=== PATIENT | male | born 1965 | race American Indian/Alaskan Native ===

== ENCOUNTER 2018-03-11 09:48 | Observation (INO) | payer OTHER ==
[2018-03-11] MEDS ORDERED: SODIUM CHLORIDE 0.9% 1,000 ML IV STA (10:36)
[2018-03-11] MEDS ORDERED: KETOROLAC 30 MG/ML 1 ML VIAL IVP STA (10:36)
--- NOTE | 2018-03-11 10:40 | ED ---
General Adult HPI - General Chief complaint: Abdominal Pain Stated complaint: abdominal pain Source: patient Mode of arrival: ambulatory Limitations: no limitations - History of Present Illness Initial comments: Dictation was produced using [employer] dictation software. please excuse any grammatical, word or spelling errors. Chief Complaint: 52-year-old male presents with 1 day history of periumbilical abdominal pain. History of Present Illness: 52-year-old male presents with periumbilical abdominal pain. Patient reports that over the last 3 days she's been feeling bloated. Patient ate some parolees made by his family member last night. This morning he awoke at approximate 6 AM feeling nauseated. He went to work when at 7:30 AM he began experiencing severe epigastric abdominal pain. She states this pain was so bad that it made him fall to his knees. He states he was having severe difficulty with walking secondary to the pain. She had one episode of clear emesis. Patient has any medical problems. Patient states he did not eat prior to his symptom onset. Denies any changes in bowel patterns. Patient denies any medical history. He did have a history of cardiac surgery performed several years ago. The ROS documented in this emergency department record has been reviewed and confirmed by me. Those systems with pertinent positive or negative responses have been documented in the HPI. All other systems are other negative and/or noncontributory. - Related Data Home Medications Medication Instructions Recorded Confirmed Bismuth Subsalicylate 262 mg PO ONCE 03/11/18 03/11/18 [Pepto-Bismol] Allergies Allergy/AdvReac Type Severity Reaction Status Date / Time No Known Allergies Allergy Verified 03/11/18 10:01 Review of Systems ROS Statement: Those systems with pertinent positive or pertinent negative responses have been documented in the HPI. ROS Other: All systems not noted in ROS Statement are negative. Past Medical History Past Medical History: No Reported History History of Any Multi-Drug Resistant Organisms: None Reported Past Surgical History: Hernia Repair Past Psychological History: No Psychological Hx Reported Smoking Status: Never smoker Past Alcohol Use History: Occasional Past Drug Use History: None Reported General Exam - General Exam Comments Initial Comments: PHYSICAL EXAM: General Impression: Alert and oriented x3, not in acute distress HEENT: Normocephalic atraumatic, extra-ocular movements intact, pupils equal and reactive to light bilaterally, mucous membranes moist. Cardiovascular: Heart regular rate and rhythm, S1&S2 audible, no murmurs, rubs or gallops Chest: Lungs clear to auscultation bilaterally, no rhonchi, no wheeze, no rales Abdomen: Epigastric and periumbilical tenderness to palpation, positive bowel sounds, no tympany Musculoskeletal: Pulses present and equal in all extremities, no peripheral edema Motor: Power 5/5 bilaterally, no focal deficits noted Neurological: CN II-XII grossly intact, no focal motor or sensory deficits noted Skin: Intact with no visualized rashes Psych: Normal affect and mood Limitations: no limitations Course Vital Signs 03/11/18 03/11/18 09:49 10:03 Temperature 98.1 F 96.9 F L Pulse Rate 63 66 Respiratory 18 18 Rate Blood Pressure 145/94 148/96 O2 Sat by Pulse 98 100 Oximetry Medical Decision Making - Medical Decision Making ED course: 52-year-old male presents with acute onset epigastric abdominal pain. Vital signs upon arrival are within acceptable limits. Laboratory evaluation unremarkable. CT abdomen and pelvis with IV contrast demonstrates acute appendicitis. Discussed patient case with general surgeon on-call Dr. Morin who is willing to accept patient for admission. Patient is to be nothing by mouth. Patient started on ceftriaxone and Flagyl. Possible OR today. EKG interpretation: Ventricular rate 76, normal sinus rhythm,. Interval 192, QRS 100, QTC 454. No RI prolongation, no QTC prolongation, no ST or T-wave changes noted. Overall, this EKG is unremarkable - Lab Data Result diagrams: 03/11/18 10:55 03/11/18 10:55 Lab Results 03/11/18 03/11/18 03/11/18 Range/Units 10:55 10:55 10:55 WBC 10.1 (3.8-10.6) k/uL RBC 5.17 (4.30-5.90) m/uL Hgb 15.4 (13.0-17.5) gm/dL Hct 45.2 (39.0-53.0) % MCV 87.5 (80.0-100.0) fL MCH 29.7 (25.0-35.0) pg MCHC 34.0 (31.0-37.0) g/dL RDW 12.9 (11.5-15.5) % Plt Count 322 (150-450) k/uL Neutrophils % 86 % Lymphocytes % 7 % Monocytes % 4 % Eosinophils % 2 % Basophils % 0 % Neutrophils # 8.7 H (1.3-7.7) k/uL Lymphocytes # 0.7 L (1.0-4.8) k/uL Monocytes # 0.4 (0-1.0) k/uL Eosinophils # 0.2 (0-0.7) k/uL Basophils # 0.0 (0-0.2) k/uL PT 10.9 (9.0-12.0) sec INR 1.0 (<1.2) Sodium 141 (137-145) mmol/L Potassium 4.1 (3.5-5.1) mmol/L Chloride 106 (98-107) mmol/L Carbon Dioxide 25 (22-30) mmol/L Anion Gap 10 mmol/L BUN 18 (9-20) mg/dL Creatinine 0.64 L (0.66-1.25) mg/dL Est GFR (CKD-EPI)AfAm >90 (>60 ml/min/1.73 sqM) Est GFR (CKD-EPI)NonAf >90 (>60 ml/min/1.73 sqM) Glucose 110 H (74-99) mg/dL Calcium 9.4 (8.4-10.2) mg/dL Total Bilirubin 0.9 (0.2-1.3) mg/dL AST 30 (17-59) U/L ALT 43 (21-72) U/L Alkaline Phosphatase 87 (38-126) U/L Troponin I (0.000-0.034) ng/mL Total Protein 7.6 (6.3-8.2) g/dL Albumin 4.3 (3.5-5.0) g/dL Lipase 31 (23-300) U/L //18 Range/Units 10:55 WBC (3.8-10.6) k/uL RBC (4.30-5.90) m/uL Hgb (13.0-17.5) gm/dL Hct (39.0-53.0) % MCV (80.0-100.0) fL MCH (25.0-35.0) pg MCHC (31.0-37.0) g/dL RDW (11.5-15.5) % Plt Count (150-450) k/uL Neutrophils % % Lymphocytes % % Monocytes % % Eosinophils % % Basophils % % Neutrophils # (1.3-7.7) k/uL Lymphocytes # (1.0-4.8) k/uL Monocytes # (0-1.0) k/uL Eosinophils # (0-0.7) k/uL Basophils # (0-0.2) k/uL PT (9.0-12.0) sec INR (<1.2) Sodium (137-145) mmol/L Potassium (3.5-5.1) mmol/L Chloride (98-107) mmol/L Carbon Dioxide (22-30) mmol/L Anion Gap mmol/L BUN (9-20) mg/dL Creatinine (0.66-1.25) mg/dL Est GFR (CKD-EPI)AfAm (>60 ml/min/1.73 sqM) Est GFR (CKD-EPI)NonAf (>60 ml/min/1.73 sqM) Glucose (74-99) mg/dL Calcium (8.4-10.2) mg/dL Total Bilirubin (0.2-1.3) mg/dL AST (17-59) U/L ALT (21-72) U/L Alkaline Phosphatase (38-126) U/L Troponin I <0.012 (0.000-0.034) ng/mL Total Protein (6.3-8.2) g/dL Albumin (3.5-5.0) g/dL Lipase (23-300) U/L Disposition Clinical Impression: Acute appendicitis Disposition: ADMITTED IP TO THIS HOSP Condition: Fair Referrals: Walt Howell MD [Primary Care Provider] - 1-2 days Decision Time: 12:23
[2018-03-11 11:11] LABS: Basophils % (A) 0 %; Eosinophils # (A) 0.2 k/uL (0-0.7); Eosinophils % (A) 2 %; HCT 45.2 % (39.0-53.0); HGB 15.4 gm/dL (13.0-17.5); Lymphocytes # (A) 0.7 k/uL (1.0-4.8); Lymphocytes % (A) 7 %; MCH 29.7 pg (25.0-35.0); MCV 87.5 fL (80.0-100.0); Mean Platelet Volume 6.3; Monocytes # (A) 0.4 k/uL (0-1.0); Monocytes % (A) 4 %; Neutrophils # (A) 8.7 k/uL (1.3-7.7); Neutrophils % (A) 86 %; Platelet Count 322 k/uL (150-450); RBC 5.17 m/uL (4.30-5.90); RDW 12.9 % (11.5-15.5); WBC 10.1 k/uL (3.8-10.6)
[2018-03-11 11:13] LABS: Prothrombin Time 10.9 sec (9.0-12.0)
[2018-03-11 11:17] LABS: ALT 43 U/L (21-72); AST 30 U/L (17-59); Albumin 4.3 g/dL (3.5-5.0); Alkaline Phosphatase 87 U/L (38-126); Anion Gap 10 mmol/L; Blood Urea Nitrogen 18 mg/dL (9-20); Calcium 9.4 mg/dL (8.4-10.2); Carbon Dioxide 25 mmol/L (22-30); Chloride 106 mmol/L (98-107); Glucose 110 mg/dL (74-99); Lipase 31 U/L (23-300); Potassium 4.1 mmol/L (3.5-5.1); Sodium 141 mmol/L (137-145); Total Bilirubin 0.9 mg/dL (0.2-1.3); Total Protein 7.6 g/dL (6.3-8.2)
--- NOTE | 2018-03-11 11:48 | CT ---
EXAMINATION TYPE: CT abdomen pelvis w con DATE OF EXAM: 03/11/2018 COMPARISON: Prior CT 06/16/2013 HISTORY: Abdominal pain CT DLP: 1358.7 mGycm Automated exposure control for dose reduction was used. TECHNIQUE: Helical acquisition of images from the lung bases through the pelvis have been completed. CONTRAST: Performed without Oral Contrast and with IV Contrast, patient injected with 100 ml mL of Isovue 300. FINDINGS: Small anterior abdominal wall hernia is present containing fat in the subxiphoid, supraumbi lical location as on prior. LUNG BASES: Dependent atelectatic changes are present at the posterior lung bases. AORTA: No significant abnormality is appreciated. LIVER/GB: Liver shows low attenuation likely due to hepatic steatosis. Gallbladder unremarkable. PANCREAS: No significant abnormality is seen. SPLEEN: No significant abnormality is seen. ADRENALS: No significant abnormality is seen. KIDNEYS: Stable cortical cysts associated with the left kidney. REPRODUCTIVE ORGANS: No significant abnormality is seen BOWEL: Diverticular changes associated with the colon the descending and sigmoid regions, no obstruc tion. The appendix is dilated fluid-filled, some periappendiceal inflammatory changes present. FREE AIR: No Free Air visible. ASCITES: None visible. PELVIC ADENOPATHY: None visualized. RETROPERITONEAL ADENOPATHY: No Retroperitoneal Adenopathy visible. URINARY BLADDER: No significant abnormality is seen. OSSEOUS STRUCTURES: Degenerative disc changes, facet arthropathy noted in the lumbar spine.. IMPRESSION: FINDINGS COMPATIBLE WITH APPENDICITIS. ADDITIONAL FINDINGS ABOVE.
[2018-03-11] MEDS ORDERED: metroNIDAZOLE-NS PMX 500 MG in SALINE 1 100ML.BAG IVPB STA (12:13)
[2018-03-11] MEDS ORDERED: NALOXONE 0.4 MG/ML 1 ML VIAL IV PRN (12:21)
[2018-03-11 12:29] LABS: Appearance,Urine Clear (Clear); Bilirubin,Urine Negative (Negative); Blood,Urine Small (Negative); Color,Urine Light Yellow; Glucose,Urine (UA) Negative (Negative); Ketones,Urine Negative (Negative); Leukocyte Esterase,Urine Negative (Negative); Mucus,Urine Rare /hpf; Nitrite,Urine Negative (Negative); Protein,Urine Negative (Negative); RBC,Urine 5 /hpf (0-5); Specific Gravity,Urine 1.027 (1.001-1.035); Urobilinogen,Urine <2.0 mg/dL (<2.0); WBC,Urine <1 /hpf (0-5)
[2018-03-11] MEDS ORDERED: HYDROcodone/APAP 5-325MG 1 EACH TAB PO PRN (12:54)
[2018-03-11] MEDS ORDERED: ONDANSETRON 4 MG/2 ML VIAL IVP PRN (12:54)
[2018-03-11] MEDS ORDERED: ACETAMINOPHEN IV (For NPO) 1,000 MG in EMPTY BAG 1 BAG IVPB ONE (12:54)
--- NOTE | 2018-03-11 12:54 | P.GSHP ---
History of Present Illness H&P Date: 03/11/18 CHIEF COMPLAINT: Right lower quadrant abdominal pain with appendicitis, 6 hrs ago HISTORY OF PRESENT ILLNESS: The patient is a previously healthy 52-year-old male who presents with less than half day history of periumbilical pain that started at work this morning. No reports of prior abdominal pain. He states the intensity of the pain was moderate to severe prompting nausea and vomiting. He presented with CT abdomen and pelvis consistent with dilated appendix suspicious for appendicitis hence general surgery admission. PAST MEDICAL HISTORY: See list. PAST SURGICAL HISTORY: See list. CURRENT MEDICATIONS: See list. ALLERGIES: See list. SOCIAL HISTORY: No illicit drug use FAMILY HISTORY: Denies Crohns disease and ulcerative colitis. REVIEW OF ORGAN SYSTEMS: CONSTITUTIONAL: Denies any fever or chills. Denies recent weight loss. HEENT: Denies any trouble with hearing or nosebleeds. Wears glasses. No difficulty swallowing. LYMPHATIC: The patient denies any lumps and bumps around the neck. ENDOCRINE: Denies any thyroid disorders. Denies any blood sugar glucose intolerance. RESPIRATORY: Denies shortness of breath including chronic cough. CARDIOVASCULAR: Denies history of chest pain with exertion. GASTROINTESTINAL: Denies regurgitation of bile at night as well as intermittent nausea. No blood in stools. GENITOURINARY: Denies any blood in urine or increased urinary frequency. MUSCULOSKELETAL: Denies current joint arthritis. NEUROLOGIC: Denies any numbness or tingling along the distal extremities. No seizure disorders or headaches. PSYCHIATRIC: Denies any depression or suicidal ideation. HEMATOLOGIC: Denies any abnormal bleeding or bruising. PHYSICAL EXAMINATION: GENERAL: Well developed and in no acute distress. Pleasant. HEENT: No sclera icterus. Extraocular movements grossly intact. Moist buccal mucosa. Head is atraumatic, normocephalic. Hears conversational speech. No nasal drainage. NECK: Supple without lymphadenopathy. No JV distention. CHEST: Non-labored respirations and equal bilateral excursions. CARDIOVASCULAR: Regular rate and rhythm. Palpable 2+ radial pulses. ABDOMEN: Soft, tender at the periumbilical, minimal right lower quadrant pain. MUSCULOSKELETAL: No clubbing, cyanosis or edema. NEUROLOGIC: No focal or lateralizing signs. PSYCH: Appropriate affect. Alert and oriented to person, place and time. SKIN: Well perfused. Good skin turgor. LABS: Reviewed STUDIES: CT of the abdomen and pelvis reviewed with findings consistent with appendicitis. ASSESSMENT: 1. Acute Appendicitis. PLAN: 1. I have discussed benefits and risks of laparoscopic appendectomy. 2. Bilateral SCDs. 3. Antibiotics. 4. DVT prophylaxis with heparin. 5. GI prophylaxis. Thank you very much for allowing me to participate in the care of your patient. Past Medical History Past Medical History: No Reported History History of Any Multi-Drug Resistant Organisms: None Reported Past Surgical History: Hernia Repair Past Psychological History: No Psychological Hx Reported Smoking Status: Never smoker Past Alcohol Use History: Occasional Past Drug Use History: None Reported Medications and Allergies Home Medications Medication Instructions Recorded Confirmed Type Bismuth Subsalicylate 262 mg PO ONCE 03/11/18 03/11/18 History [Pepto-Bismol] Allergies Allergy/AdvReac Type Severity Reaction Status Date / Time No Known Allergies Allergy Verified 03/11/18 10:01 Surgical - Exam Vital Signs Temp Pulse Resp BP Pulse Ox 98.1 F 63 18 145/94 98 03/11/18 09:49 03/11/18 09:49 03/11/18 09:49 03/11/18 09:49 03/11/18 09:49 Results - Labs 03/11/18 10:55 03/11/18 10:55 Abnormal Lab Results - Last 24 Hours (Table) 03/11/18 03/11/18 03/11/18 Range/Units 10:55 10:55 11:50 Neutrophils # 8.7 H (1.3-7.7) k/uL Lymphocytes # 0.7 L (1.0-4.8) k/uL Creatinine 0.64 L (0.66-1.25) mg/dL Glucose 110 H (74-99) mg/dL Urine Blood Small H (Negative) Urine Mucus Rare H (None) /hpf Diabetes panel 03/11/18 Range/Units 10:55 Sodium 141 (137-145) mmol/L Potassium 4.1 (3.5-5.1) mmol/L Chloride 106 (98-107) mmol/L Carbon Dioxide 25 (22-30) mmol/L BUN 18 (9-20) mg/dL Creatinine 0.64 L (0.66-1.25) mg/dL Glucose 110 H (74-99) mg/dL Calcium 9.4 (8.4-10.2) mg/dL AST 30 (17-59) U/L ALT 43 (21-72) U/L Alkaline Phosphatase 87 (38-126) U/L Total Protein 7.6 (6.3-8.2) g/dL Albumin 4.3 (3.5-5.0) g/dL Calcium panel 03/11/18 Range/Units 10:55 Calcium 9.4 (8.4-10.2) mg/dL Albumin 4.3 (3.5-5.0) g/dL Pituitary panel 03/11/18 Range/Units 10:55 Sodium 141 (137-145) mmol/L Potassium 4.1 (3.5-5.1) mmol/L Chloride 106 (98-107) mmol/L Carbon Dioxide 25 (22-30) mmol/L BUN 18 (9-20) mg/dL Creatinine 0.64 L (0.66-1.25) mg/dL Glucose 110 H (74-99) mg/dL Calcium 9.4 (8.4-10.2) mg/dL Adrenal panel 03/11/18 Range/Units 10:55 Sodium 141 (137-145) mmol/L Potassium 4.1 (3.5-5.1) mmol/L Chloride 106 (98-107) mmol/L Carbon Dioxide 25 (22-30) mmol/L BUN 18 (9-20) mg/dL Creatinine 0.64 L (0.66-1.25) mg/dL Glucose 110 H (74-99) mg/dL Calcium 9.4 (8.4-10.2) mg/dL Total Bilirubin 0.9 (0.2-1.3) mg/dL AST 30 (17-59) U/L ALT 43 (21-72) U/L Alkaline Phosphatase 87 (38-126) U/L Total Protein 7.6 (6.3-8.2) g/dL Albumin 4.3 (3.5-5.0) g/dL
[2018-03-11] MEDS: SODIUM CHLORIDE 0.9% 1,000 ML IV SCH ×2 (13:00→23:16)
[2018-03-11] MEDS ORDERED: INFLUENZA VACCINE (6 MOS+) 60 MCG/0.5 ML SYRINGE IM ONE (13:21)
[2018-03-11] MEDS: KETOROLAC 30 MG/ML 1 ML VIAL IVP SCH ×2 (17:43→22:59)
[2018-03-11 20:21] VITALS: RESP 16
[2018-03-12] MEDS: KETOROLAC 30 MG/ML 1 ML VIAL IVP SCH (05:07)
[2018-03-12 07:44] LABS: Basophils % (A) 1 %; Eosinophils # (A) 0.1 k/uL (0-0.7); Eosinophils % (A) 3 %; HCT 42.6 % (39.0-53.0); HGB 14.4 gm/dL (13.0-17.5); Lymphocytes # (A) 1.5 k/uL (1.0-4.8); Lymphocytes % (A) 27 %; MCH 30.1 pg (25.0-35.0); MCHC 33.8 g/dL (31.0-37.0); MCV 88.9 fL (80.0-100.0); Mean Platelet Volume 6.3; Monocytes # (A) 0.4 k/uL (0-1.0); Monocytes % (A) 7 %; Neutrophils # (A) 3.4 k/uL (1.3-7.7); Neutrophils % (A) 61 %; Platelet Count 285 k/uL (150-450); RBC 4.79 m/uL (4.30-5.90); WBC 5.6 k/uL (3.8-10.6)
[2018-03-12] MEDS ORDERED: SODIUM CHLORIDE 0.9% 1,000 ML IV ONE ×2 (08:50)
[2018-03-12] MEDS ORDERED: BUPIVACAIN-EPI 0.25%-1:200,000 30 ML VIAL SQ ONE (08:54)
[2018-03-12] MEDS ORDERED: HEPARIN SODIUM,PORCINE 5,000 UNIT/ML 1 ML VIAL SQ SCH (09:00)
[2018-03-12] MEDS ORDERED: KETOROLAC 30 MG/ML 1 ML VIAL ONE (09:22)
[2018-03-12] MEDS ORDERED: NEOSTIGMINE 1 MG/ML 10 ML VIAL ONE (09:22)
[2018-03-12] MEDS ORDERED: ROCURONIUM BROMIDE 10 MG/ML 10 ML VIAL IV ONE (09:22)
[2018-03-12] MEDS ORDERED: MIDAZOLAM 2 MG/2 ML VIAL ONE (09:22)
[2018-03-12] MEDS ORDERED: SUCCINYLCHOLINE CHLORIDE 100 MG/5 ML SYR IV ONE (09:22)
[2018-03-12] MEDS ORDERED: ePHEDrine SULFATE/0.9% NACL/PF 50 MG/5 ML SYRINGE IV ONE (09:22)
[2018-03-12] MEDS ORDERED: ceFAZolin 1,000 MG VIAL ONE (09:22)
[2018-03-12] MEDS ORDERED: fentaNYL (PF) 50 MCG/ML 2 ML AMP ONE (09:22)
[2018-03-12] MEDS ORDERED: LIDOCAINE 1% INJ 10MG/ML (20 ML MDV) ONE (09:22)
[2018-03-12] MEDS ORDERED: DEXAMETHASONE SOD PHOS (MDV) 100 MG/10 ML VIAL ONE (09:22)
[2018-03-12] MEDS ORDERED: PROPOFOL 10 MG/ML 20 ML VIAL IV ONE (09:22)
[2018-03-12] MEDS ORDERED: GLYCOPYRROLATE 0.2 MG/ML 2 ML VIAL ONE (09:22)
[2018-03-12] MEDS ORDERED: SODIUM CHLORIDE 0.9% 50 ML with ceFAZolin 2,000 MG IV ONE ×2 (09:25)
--- NOTE | 2018-03-12 10:20 | P.OP ---
Date of Procedure: 03/12/18 Description of Procedure: Date of Procedure: 03/12/18 SURGEON: GRACIE CLARKE MD PACKING SHED SUPERVISOR: None. PREOPERATIVE DIAGNOSES: 1. Periumbilical pain 2. Acute appendicitis. 3. Abnormal computed tomography scan for appendicitis POSTOPERATIVE DIAGNOSES: 1. Periumbilical pain 2. Acute appendicitis. 3. Abnormal computed tomography scan for appendicitis 4. Acute appendicitis without rupture. 5. Recurrent incisional umbilical hernia with peritoneal adhesion PROCEDURES PERFORMED: 1. Diagnostic laparoscopy. 2. Laparoscopic appendectomy. ANESTHESIA: General with local ESTIMATED BLOOD LOSS: 5 mL. SPECIMENS REMOVED: Appendix. COMPLICATIONS: None. Condition: stable Disposition: floor OPERATIVE FINDINGS: 1. Acute appendicitis with dilated appendix without rupture. 2. Unremarkable small bowel and terminal ileum. 3. The colon was unremarkable 4. Omentum adhesion to previous umbilical hernia repair 5. Single staple fire along base of appendix with bleeding controlled with pressure INDICATIONS: The patient is a 52-year-old male who presents with acute appendicitis. Benefits and risks, including possibility of open technique were described at length. Informed consent was obtained. DESCRIPTION OR PROCEDURE: Patient was brought to the operating room, laid in supine position. After general induction, the abdomen was prepped and draped in standard sterile fashion. Prior to incision, a timeout protocol was confirmed with surgical team regarding patient's name including procedure to be performed. Preoperative medications were given intraoperatively. Additionally, bilateral SCDs were placed. A left upper quadrant incision was made after localizing the skin with anesthetic. A 0 degree 5 mm laparoscopic trocar entry was performed and entered into the peritoneal cavity. The abdomen was insufflated to 15 mmHg of pressure, which he tolerated well. Diagnostic laparoscopy demonstrated no injury to bowel, viscera or mesentery. A 5 mm port was placed just above the pubis. A separate 12 mm port was placed at the left lateral abdominal wall under direct visualization. The patient was placed in Trendelenburg position with the right side up. A systematic view within the abdominal cavity was started with the small bowel which was unremarkable. The base of the cecum was without inflammation. The entire appendix was dilated consistent with acute appendicitis without rupture. A 60 mm Endo ASTRID echelon stapler was fired using a ariza vascular load. A staple load was used for complete division of the base of the appendix. Bleeding along the staple line was controlled with pressure. The specimen was removed from the abdominal cavity with a Endo Catch bag through the 12 mm trocar. All instruments and pneumoperitoneum were evacuated from the abdominal cavity. A total of 30 mL of local anesthetic was infiltrated in all wounds for postop analgesia. Liquid glue was applied to the skin after reapproximating the incisions with 4-0 Monocryl as described. At the end of the procedure, needle, sponge, and instrument count was verified correct by surgical services director. The patient had tolerated the procedure well, was taken to the postanesthesia care unit in stable condition. Intraoperative findings were reviewed with the patient's family who were pleased with the level of care.
[2018-03-12 11:27] VITALS: BP 153/90; PULSE 62; TEMP 97.8
--- NOTE | 2018-03-12 12:33 | P.DS ---
Providers Date of admission: 03/11/18 12:28 Expected date of discharge: 03/12/18 Attending physician: Marisa Dawn Primary care physician: Lynda Godoy - Discharge Diagnosis(es) (1) Recurrent incisional hernia Current Visit: Yes Status: Acute (2) Acute appendicitis Current Visit: Yes Status: Acute Hospital Course: The patient is a 52-year-old male admitted after developing acute appendicitis. Additional CT imaging was consistent with recurrent incisional hernia with prior history of umbilical hernia done many years ago. Postprocedure from his appendectomy, he had done well. Intraoperative findings including recurrent hernia was described although he's asymptomatic. Nonperforated acute dilated appendicitis described. Discharge instructions including no lifting over 5 pounds for 1 week described. Non-narcotic pain medications described for pain control. Patient will follow-up in the office within 1 week. Pertinent Studies: CT of the pelvis demonstrating dilated appendicitis and acute appendicitis. Additional findings of recurrent incisional hernia described Procedures: Laparoscopic appendectomy, 03/12/2018 uncomplicated Patient Condition at Discharge: Good Plan - Discharge Summary Discharge Rx Participant: Yes New Discharge Prescriptions: New Ibuprofen [Motrin] 600 mg PO Q8HR PRN #30 tab PRN Reason: Pain No Action Bismuth Subsalicylate [Pepto-Bismol] 262 mg PO ONCE Discharge Medication List Bismuth Subsalicylate [Pepto-Bismol] 262 mg PO ONCE 03/11/18 [History] Ibuprofen [Motrin] 600 mg PO Q8HR PRN #30 tab 03/12/18 [Rx] Follow up Appointment(s)/Referral(s): Walt Howell MD [Primary Care Provider] - 1-2 days Marisa Dawn MD [STAFF PHYSICIAN] - 03/15/18 (Please call to confirm time) Patient Instructions/Handouts: Laparoscopic Appendectomy (IP) Activity/Diet/Wound Care/Special Instructions: May shower. No bathtub soaks. No lifting over 5 pounds in 1 week. Complete recovery expected after 3 to 4 weeks following surgery. Diet as tolerated. Please give influenza vaccine at discharge, see MAR Discharge Disposition: HOME SELF-CARE
== END 2018-03-12 13:50 | disposition home or self-care (01) ==
LOC: EC 09:48 → 4MS4W 12:28 → 3NMEDONC 14:27
PROVIDERS: ADMIT Surgery Plastic and Reconstructive Surgery; ATTEND Surgery Plastic and Reconstructive Surgery
DX: K35.30 Acute appendicitis with localized peritonitis, without perforation or gangrene (principal); K43.2 Incisional hernia without obstruction or gangrene; K66.0 Peritoneal adhesions (postprocedural) (postinfection); Z23 Encounter for immunization
CPT/HCPCS: 44970; 96376 ×2; 96361; 96365; 96375; 99285; 36415; 93005; 88304; 80053; 83690; 84484; 85025 ×2; 85610; 81001; 74177; 90686; G0378 ×2; G0008; J2250; J1644; J2710; J2405; J0690 ×2; J2001; J0696; J3010; J1885 ×2; J1100; J0131; J0330; J2704; Q9967

== ENCOUNTER 2018-03-20 15:09 | Emergency (ER) | payer OTHER ==
[2018-03-20 15:34] VITALS: TEMP 98.1
--- NOTE | 2018-03-20 15:50 | ED ---
Extremity Problem HPI - General Chief complaint: Extremity Problem,Nontraumatic Stated complaint: Leg pain Time Seen by Provider: 03/20/18 15:37 Source: patient Mode of arrival: ambulatory Limitations: no limitations - History of Present Illness Initial comments: 52-year-old male patient presents to the emergency department today for evaluation of right calf pain. Patient states it Has been bothering him for the last 2 and half days. Patient states at times pain gets very intense. Patient states he has tried massaging the area and eating bananas to help with cramping but is not helping. Patient states it does get worse with ambulation. Patient did have an appendectomy on 03/12/[address] Morin. Patient denies any history of blood clots. Denies any swelling to the leg. Patient states the proximal calf is tender. Denies any fevers or chills with this. Denies any chest pain, shortness of breath, dizziness, or weakness. Patient denies any recent rash, abdominal pain, nausea, vomiting, diarrhea, constipation , back pain, numbness, tingling, hematuria, dysuria, urinary urgency, urinary frequency, headache, visual changes, or any other complaints. - Related Data Previous Rx's Medication Instructions Recorded Ibuprofen [Motrin] 600 mg PO Q8HR PRN #30 tab 03/20/18 Allergies Allergy/AdvReac Type Severity Reaction Status Date / Time No Known Allergies Allergy Verified 03/20/18 15:49 Review of Systems ROS Statement: Those systems with pertinent positive or pertinent negative responses have been documented in the HPI. ROS Other: All systems not noted in ROS Statement are negative. Past Medical History Past Medical History: No Reported History History of Any Multi-Drug Resistant Organisms: None Reported Past Surgical History: Appendectomy, Hernia Repair, Tonsillectomy Additional Past Surgical History / Comment(s): Umbilical hernia repair. Past Anesthesia/Blood Transfusion Reactions: No Reported Reaction Past Psychological History: No Psychological Hx Reported Smoking Status: Never smoker Past Alcohol Use History: Occasional Past Drug Use History: None Reported - Past Family History Father Additional Family Medical History / Comment(s): Pt is adopted and does not know father's history Mother Family Medical History: No Reported History Additional Family Medical History / Comment(s): Mother is healthy and 70yrs old. General Exam Limitations: no limitations General appearance: alert, in no apparent distress, other (This is a well- developed, well-nourished adult male patient in no acute distress. Vital signs upon presentation are temperature 98.1F, pulse 88, respirations 18, blood pressure 136/93, pulse ox 98% on room air.) Respiratory exam: Present: normal lung sounds bilaterally. Absent: respiratory distress, wheezes, rales, rhonchi, stridor Cardiovascular Exam: Present: regular rate, normal rhythm, normal heart sounds. Absent: systolic murmur, diastolic murmur, rubs, gallop, clicks GI/Abdominal exam: Present: soft, normal bowel sounds. Absent: distended, tenderness, guarding, rebound, rigid Extremities exam: Present: normal inspection, full ROM, normal capillary refill , calf tenderness (Right proximal calf tenderness), other (Skin to the right lower extremity is pink, warm, dry. Cap refills less than 3 seconds. Pedal posttibial pulses 2+ and equal bilaterally. No swelling noted.). Absent: tenderness, pedal edema, joint swelling Neurological exam: Present: alert, oriented X3, CN II-XII intact Psychiatric exam: Present: normal affect, normal mood Skin exam: Present: warm, dry, intact, normal color. Absent: rash Course Vital Signs 03/20/18 15:32 Temperature 98.1 F Pulse Rate 88 Respiratory 18 Rate Blood Pressure 136/93 O2 Sat by Pulse 98 Oximetry Medical Decision Making - Medical Decision Making 52-year-old male patient presents to the emergency department today for evaluation of right calf pain. Patient did undergo appendectomy on 03/12/2018. Physical examination did reveal tenderness over the proximal right calf. Ultrasound was obtained and did reveal a superficial venous thrombosis to the right calf. Patient symptoms to correlate clinically with this finding. Patient be discharged home with prescription for anti-inflammatory medication. He is educated regarding compression stockings and warm compresses. He is instructed to follow-up with his primary care physician for recheck in 1-2 days. Return parameters discussed in detail. He verbalizes understanding and agrees with this plan. - Radiology Data Radiology results: report reviewed, image reviewed Ultrasound venous Doppler duplex of the right lower extremity was obtained. Report was reviewed in its entirety. Impression by Dr. Mahoney shows no evidence of deep venous thrombosis in the right leg. There is noncompressible linear area consistent with right Superficial vein thrombosis. Disposition Clinical Impression: Acute superficial venous thrombosis of right lower extremity Disposition: HOME SELF-CARE Condition: Good Instructions: Superficial Thrombophlebitis (ED) Additional Instructions: Apply warm compresses to the painful area. Take anti-inflammatory medication as directed. Wear compression stockings. Follow-up with your primary care physician for recheck in 1-2 days. Return immediately for any new, worsening, or concerning symptoms. Prescriptions: Ibuprofen [Motrin] 600 mg PO Q8HR PRN #30 tab PRN Reason: Pain Is patient prescribed a controlled substance at d/c from ED?: No Referrals: None,Stated [Primary Care Provider] - 1-2 days Time of Disposition: 16:43
--- NOTE | 2018-03-20 16:40 | US ---
EXAMINATION TYPE: US venous doppler duplex LE RT DATE OF EXAM: 03/20/2018 4:04 PM COMPARISON: NONE CLINICAL HISTORY: Pain. Right leg pain, recent surgery SIDE PERFORMED: Right TECHNIQUE: The lower extremity deep venous system is examined utilizing real time linear array sonog zohreh with graded compression, doppler sonography and color-flow sonography. VESSELS IMAGED: External Iliac Vein (EIV) Common Femoral Vein Deep Femoral Vein Greater Saphenous Vein * Femoral Vein Popliteal Vein Small Saphenous Vein * Proximal Calf Veins (* superficial vessels) Right Leg: Negative for DVT. At the area of the patient's pain in the right calf, there is a non-com pressible area visualized with no vascularity. Possible SVT vs other Left Leg: IMPRESSION: No evidence of deep venous thrombosis in the right leg. There is noncompressible linear a heather consistent with right calf superficial vein thrombosis.
[2018-03-20 17:07] VITALS: BP 139/98; PULSE 80; RESP 16
== END 2018-03-20 17:05 | disposition home or self-care (01) ==
LOC: EC 15:09
DX: I82.811 Embolism and thrombosis of superficial veins of right lower extremity (principal)
CPT/HCPCS: 99283

== ENCOUNTER 2020-07-22 22:35 | Emergency (ER) | payer OTHER ==
[2020-07-22 22:53] VITALS: BP 143/99; PULSE 97; RESP 20; TEMP 98
--- NOTE | 2020-07-22 23:30 | XR ---
EXAMINATION TYPE: XR hand complete LT DATE OF EXAM: 07/22/2020 COMPARISON: NONE HISTORY: Wrist injury. Pain. TECHNIQUE: Previews FINDINGS: There is impacted comminuted transverse fracture distal radial metaphysis. Fracture extends to the radiocarpal joint. There is no dislocation. There is soft tissue swelling around the wrist. T he carpal bones are intact. IMPRESSION: Acute mildly impacted comminuted distal radius fracture.
--- NOTE | 2020-07-22 23:32 | XR ---
EXAMINATION TYPE: XR forearm LT DATE OF EXAM: 07/22/2020 COMPARISON: NONE HISTORY: Wrist injury. Pain. TECHNIQUE: 3 views FINDINGS: There is slightly impacted comminuted transverse fracture distal radial metaphysis. There i s no dislocation at the wrist joint. The ulna appears intact. The elbow joint appears intact. There i s no sign of elbow joint effusion. IMPRESSION: Acute impacted comminuted distal radius fracture.
[2020-07-23] MEDS ORDERED: ACET/COD 300 MG/30 MG STARTER PACK 6 TAB BTL PO STA (00:23)
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
== END 2020-07-23 00:30 | disposition home or self-care (01) ==
LOC: EC 22:35
DX: S52.352A Displaced comminuted fracture of shaft of radius, left arm, initial encounter for closed fracture (principal); Z90.49 Acquired absence of other specified parts of digestive tract; Z90.09 Acquired absence of other part of head and neck; Z87.891 Personal history of nicotine dependence; W18.30XA Fall on same level, unspecified, initial encounter
CPT/HCPCS: 29105; 29125; 99283

== ENCOUNTER 2020-11-25 12:00 | Day surgery (SDC) | payer BC ==
[2020-11-21 13:47] VITALS: BMI 33.0
[~2020-11-25 12:00] MED LIST: LACTATED RINGERS 1,000 ML IV SCH
[2020-11-25 12:13] VITALS: RESP 18; TEMP 97
--- NOTE | 2020-11-25 13:52 | P.GSHP ---
History of Present Illness H&P Date: 11/25/20 Chief Complaint: Screening colonoscopy Is a 55-year-old male presents for screening colonoscopy. Patient denies a significant GI complaints. Past Medical History Past Medical History: No Reported History History of Any Multi-Drug Resistant Organisms: None Reported Past Surgical History: Appendectomy, Hernia Repair, Tonsillectomy Additional Past Surgical History / Comment(s): Umbilical hernia repair Past Anesthesia/Blood Transfusion Reactions: No Reported Reaction Smoking Status: Former smoker - Past Family History Father Additional Family Medical History / Comment(s): Pt is adopted and does not know father's history Mother Family Medical History: No Reported History Additional Family Medical History / Comment(s): Mother is healthy and 70yrs old. Medications and Allergies Home Medications Medication Instructions Recorded Confirmed Type No Known Home Medications 11/21/20 11/21/20 History Allergies Allergy/AdvReac Type Severity Reaction Status Date / Time No Known Allergies Allergy Verified 11/25/20 12:14 Surgical - Exam Vital Signs Temp Pulse Resp BP Pulse Ox 97 F L 70 18 145/84 97 11/25/20 12:11 11/25/20 12:11 11/25/20 12:11 11/25/20 12:11 11/25/20 12:11 - General well developed, no distress - Eyes PERRL - ENT normal pinna - Neck no masses - Respiratory normal expansion - Cardiovascular Rhythm: regular - Abdomen Abdomen: soft, non tender Assessment and Plan Assessment: We'll perform screening colonoscopy
[2020-11-25] MEDS ORDERED: PROPOFOL 10 MG/ML 20 ML VIAL IV ONE (14:28)
[2020-11-25] MEDS ORDERED: GLUCAGON 1 MG/ML VIAL ONE (14:28)
--- NOTE | 2020-11-25 14:47 | P.GSHP ---
History of Present Illness H&P Date: 11/25/20 Chief Complaint: Screening colonoscopy 75-year-old male presents for Screening Colonoscopy. Patient Denies a Significant GI Complaints. Past Medical History Past Medical History: No Reported History History of Any Multi-Drug Resistant Organisms: None Reported Past Surgical History: Appendectomy, Hernia Repair, Tonsillectomy Additional Past Surgical History / Comment(s): Umbilical hernia repair Past Anesthesia/Blood Transfusion Reactions: No Reported Reaction Smoking Status: Former smoker - Past Family History Father Additional Family Medical History / Comment(s): Pt is adopted and does not know father's history Mother Family Medical History: No Reported History Additional Family Medical History / Comment(s): Mother is healthy and 70yrs old. Medications and Allergies Home Medications Medication Instructions Recorded Confirmed Type No Known Home Medications 11/21/20 11/21/20 History Allergies Allergy/AdvReac Type Severity Reaction Status Date / Time No Known Allergies Allergy Verified 11/25/20 12:14 Surgical - Exam Vital Signs Temp Pulse Resp BP Pulse Ox 97 F L 70 18 145/84 97 11/25/20 12:11 11/25/20 12:11 11/25/20 12:11 11/25/20 12:11 11/25/20 12:11 - General well developed, well nourished, no distress - Eyes PERRL - ENT normal pinna - Neck no masses - Respiratory normal expansion - Cardiovascular Rhythm: regular - Abdomen Abdomen: soft, non tender Assessment and Plan Plan: We'll perform screening colonoscopy
[2020-11-25 15:30] VITALS: BP 130/85; PULSE 59
--- NOTE | 2020-11-25 17:01 | P.OP ---
Date of Procedure: 11/25/20 Preoperative Diagnosis: Screening colonoscopy Postoperative Diagnosis: Diverticulosis Rectal polyp Procedure(s) Performed: Colonoscopy Anesthesia: MAC Surgeon: Naman Naqvi Pathology: other (Rectal polyp) Condition: stable Disposition: PACU Description of Procedure: The patient's placed on the endoscopy table in the lateral position he received IV sedation. Digital rectal exam was performed which revealed no abnormalities. Flexible colonoscope was then placed patient anus and passed throughout the entire colon. The ileocecal valve was visualized. The cecum, ascending and transverse colon appeared normal. In the descending and sigmoid colon there was moderate diverticulosis. The scope was then brought back the rectum and a polyp was seen. This removed with a cold forcep. Scope was withdrawn for patient.
== END 2020-11-25 16:00 | disposition home or self-care (01) ==
LOC: ORWHC2ENDO 12:00
PROVIDERS: ATTEND Surgery
DX: Z12.11 Encounter for screening for malignant neoplasm of colon (principal); K62.1 Rectal polyp; Z87.891 Personal history of nicotine dependence; Z90.49 Acquired absence of other specified parts of digestive tract
CPT/HCPCS: 45380; J1610; J2704; 88305

== ENCOUNTER → 2021-07-07 | Outpatient (CLI) | payer BC ==
--- NOTE | 2021-07-07 11:44 | P.STRESS ---
- Stress Test Note Stress Test Results/Findings: Exam Performed: stress test Exam Date: 07/07/21 Reason for Exam: ABNORMAL EKG Height: 6 ft 1 in Weight: 245 kg Protocol: HARRIET Stage: III Duration of Exercise: 8:11 Resting Heart Rate: 70 Resting Blood Pressure: 136/103 Maximum Achieved Heart Rate: 163 Maximum Achieved Blood Pressure: 185/100 85% PMHR: 139 100% PMHR: 164 METS: 9.9 Technologist Comment: Stress Test Results/Findings: Patient underwent exercise stress EKG with a Harriet protocol treadmill stress test. Patient exercised into Stage 3 for a total of 8 minutes and 11 seconds reaching a total of and 9.9 METS. Patient's maximum heart rate was 163 which represented 99 % age-predicted maximum heart rate. Stress EKG findings: At baseline patient's EKG showed normal sinus rhythm, normal axis, no significant ST or T-wave abnormalities.. At peak exercise, EKG showed no significant change from baseline. Conclusions: 1. Normal EKG response to exercise without evidence of inducible ischemia. 2. Good exercise capacity.
== END | disposition home or self-care (01) ==
LOC: RADNMMAIN 10:07
PROVIDERS: ATTEND Family Medicine
DX: R94.31 Abnormal electrocardiogram [ECG] [EKG] (principal)
CPT/HCPCS: 93017